=== PATIENT | male | born 1965 | race Caucasian/White ===

== ENCOUNTER 2017-03-31 14:49 | Emergency (ER) | payer SELFPAY ==
[~2017-03-31] VITALS: Ht 188 cm; Wt 86.2 kg
[2017-03-31 14:57] VITALS: BP 121/82
== END 2017-03-31 16:05 | disposition left against medical advice (07) ==
LOC: ER 15:05
DX: M54.5 Low back pain (principal); Z53.21 Procedure and treatment not carried out due to patient leaving prior to being seen by health care provider
CPT/HCPCS: 93005